=== PATIENT | female | born 1975 | race Caucasian/White ===

== ENCOUNTER 2017-12-14 12:38 | Emergency (ER) | payer OTHER ==
[2017-12-14] MEDS: morphine 4 MG/ML VIAL IV (18:05)
[2017-12-14] MEDS: KETOROLAC 30 MG INJ IV (18:05)
[2017-12-14] MEDS: LABETALOL HCL 20MG INJ IV (18:06)
[2017-12-14] MEDS: ONDANSETRON 4 MG INJ IV (18:06)
[2017-12-14 18:22] LABS: ADD MAN DIFF? NO
[2017-12-14 18:26] LABS: WHITE BLOOD COUNT 13.6 10^3/ul (4.8-10.8)
[2017-12-14 18:26] LABS: BASOPHIL # 0.1 10^3/ul (0.0-0.1); BASOPHILS % 0.7 % (0.0-2.0); EOSINOPHILS # 0.3 10^3/ul (0.0-0.5); EOSINOPHILS % 1.8 % (0.0-7.0); HEMATOCRIT 41.2 % (37.0-47.0); HEMOGLOBIN 14.4 g/dl (12.0-16.0); LYMPHOCYTES # 3.4 10^3/ul (0.8-2.9); LYMPHOCYTES % 24.9 % (15.0-51.0); MEAN CORPUSCULAR HEMOGLOBIN 29.8 pg (29.0-33.0); MEAN CORPUSCULAR VOLUME 85.1 fl (82.0-101.0); MONOCYTE # 1.2 10^3/ul (0.3-0.9); NEUTROPHIL # 8.6 10^3/ul (1.6-7.5); PLATELET COUNT 347 10^3/UL (140-415); RED BLOOD COUNT 4.84 10^6/ul (4.20-5.40)
[2017-12-14 18:42] LABS: ANION GAP 13 (8-16); BLOOD UREA NITROGEN 10 mg/dl (7-20); CALCIUM 9.5 mg/dl (8.4-10.2); CARBON DIOXIDE 27 mmol/L (21-31); CHLORIDE 101 mmol/L (97-110); CREATININE 0.45 mg/dl (0.44-1.00); GLUCOSE 167 mg/dl (70-220); POTASSIUM 3.6 mmol/L (3.5-5.1); SODIUM 137 mmol/L (135-144)
[2017-12-14 18:54] LABS: TROPONIN-I 0.059 ng/ml (0.00-0.12)
[2017-12-14] MEDS: AMLODIPINE 10 MG TAB PO (21:09)
== END 2017-12-14 21:12 | disposition home or self-care (01) ==
LOC: FTE 12:38 → E/R 21:12
DX: I16.0 Hypertensive urgency (principal); J20.9 Acute bronchitis, unspecified; R94.31 Abnormal electrocardiogram [ECG] [EKG]; I10 Essential (primary) hypertension
CPT/HCPCS: 36415; 71045; 80048; 84484; 85025; 93005; 93971; 96374; 96375; 99291-25